=== PATIENT | female | born 1990 | race Caucasian/White ===

== ENCOUNTER 2021-03-09 17:37 | Emergency (ER) | payer OTHER ==
[~2021-03-09] VITALS: Ht 162.6 cm; Wt 60.3 kg
[2021-03-09] MEDS ORDERED: IV NORMAL SALINE 500 ML BAG IV ONE (18:00)
[2021-03-09 18:20] LABS: HEMATOCRIT 44.1 % (31.2-41.9); MEAN CORPUSCULAR HEMOGLOBIN 27.4 uug (24.7-32.8); MEAN CORPUSCULAR VOLUME 83.3 fL (75.5-95.3); PLATELET COUNT (AUTO) 208 K/uL (179-408)
[2021-03-09 18:29] LABS: BILIRUBIN,TOTAL 0.2 mg/dL (0.2-1.0); CREATININE 0.8 mg/dL (0.6-1.3); POTASSIUM 3.5 mmol/L (3.5-5.1); TOTAL PROTEIN, SERUM 7.8 g/dL (6.4-8.2)
[2021-03-09 18:37] LABS: THYROID STIMULATING HORMONE 3.297 mIU/mL (0.358-3.740)
--- NOTE | 2021-03-09 19:11 | NUR ---
PT WAS EVALUATED BY DR MESA. PT WAS D/C'd TO HOME. D/C INSTRUCTIONS GIVEN TOTHE PT BY DR MESA.
[2021-03-09 19:12] VITALS: BP 128/76
== END 2021-03-09 19:12 | disposition home or self-care (01) ==
LOC: ER 17:39
DX: U07.1 COVID-19 (principal); R00.0 Tachycardia, unspecified; M79.10 Myalgia, unspecified site; Z86.19 Personal history of other infectious and parasitic diseases
CPT/HCPCS: 36415; 71045; 84443; 85025; 93005; A4663; J7030

== ENCOUNTER 2022-01-16 05:40 | Emergency (ER) | payer OTHER ==
[~2022-01-16] VITALS: Ht 165.1 cm; Wt 68.0 kg
[2022-01-16] MEDS ORDERED: IRON-16 PO (05:47)
[2022-01-16 06:32] LABS: HEMATOCRIT 41.4 % (31.2-41.9); MEAN CORPUSCULAR HEMOGLOBIN 32.1 uug (24.7-32.8); MEAN CORPUSCULAR VOLUME 92.4 fL (75.5-95.3); PLATELET COUNT (AUTO) 202 K/uL (179-408)
[2022-01-16 06:41] LABS: CARBON DIOXIDE 24 mmol/L (21-32); CHLORIDE 105 mmol/L (98-107); CREATININE 0.8 mg/dL (0.6-1.3); GLUCOSE 99 mg/dL (74-106); POTASSIUM 3.1 mmol/L (3.5-5.1); UREA NITROGEN, BLOOD 15 mg/dL (7-18)
[2022-01-16 06:54] LABS: ALANINE AMINOTRANSFERASE 22 U/L (14-59); ALKALINE PHOSPHATASE 83 U/L (50-136); ASPARTATE AMINOTRANSFERASE 14 U/L (15-37); BILIRUBIN,DIRECT 0.1 mg/dL (0.0-0.2); BILIRUBIN,TOTAL 0.2 mg/dL (0.2-1.0); THYROID STIMULATING HORMONE 4.804 mIU/mL (0.358-3.740)
[2022-01-16] MEDS ORDERED: POTASSIUM CHLORIDE 20 MEQ TAB.PRT.SR PO ONE (07:45)
[2022-01-16] MEDS ORDERED: POTASSIUM CHLORIDE 20 MEQ TAB.PRT.SR ONE (08:49)
[2022-01-16 09:03] VITALS: BP 116/67
--- NOTE | 2022-01-16 09:03 | NUR ---
Patient discharged to home in stable condition. Written and verbal after care instructions given. Patient verbalizes understanding of instructions. Stressed follow up or return to ER for worsening s/s.
== END 2022-01-16 09:04 | disposition home or self-care (01) ==
LOC: ER 05:44
DX: R00.2 Palpitations (principal); R03.0 Elevated blood-pressure reading, without diagnosis of hypertension; Z82.49 Family history of ischemic heart disease and other diseases of the circulatory system; Z84.1 Family history of disorders of kidney and ureter; I51.7 Cardiomegaly
CPT/HCPCS: 36415; 70030-TC; 71045; 84443; 84484; 85025; 85730; 93005; A4663